=== PATIENT | male | born 1975 | race Caucasian/White ===

== ENCOUNTER 2020-01-26 16:04 | Emergency (ER) | payer SELFPAY ==
[2020-01-26] MEDS ORDERED: Sodium Chloride 0.9% 10 ML Syringe FLUSH PRN (16:08)
[2020-01-26] MEDS ORDERED: Iopamidol 612 MG/ML 100 ML Bottle IV SCH (16:15)
[2020-01-26] MEDS ORDERED: Sodium Chloride 0.9% 80 ML IV SCH (16:15)
--- NOTE | 2020-01-26 16:23 | EDM.PDOC ---
ED HPI GENERAL MEDICAL PROBLEM - General Chief Complaint: Trauma Stated Complaint: ACCIDENT [facility]IA [facility] Time Seen by Provider: 01/26/20 16:04 Source of Information: Reports: Patient, EMS History Limitations: Reports: No Limitations - History of Present Illness INITIAL COMMENTS - FREE TEXT/NARRATIVE: 44-year-old male was helping side of building and fell off a ladder 8 feet. He has been consuming alcohol. He struck the right side of his head hard on some concrete and was knocked unconscious. When he came around the next thing he remembers is the ambulance was present. He had repetitive questioning, was complaining about some right wrist and right femur pain but no other complaints initially. On arrival to the emergency room he started complaining about some right-sided chest wall pain. He has no shortness of breath, visual complaints, neck pain, abdominal pain, pelvis pain or nausea. Onset: Sudden Duration: Hour(s): (Just under 1 hour ago) Location: Reports: Head, Face, Chest, Upper Extremity, Right, Lower Extremity, Right Quality: Reports: Ache Associated Symptoms: Reports: Confusion, Chest Pain (Fairly localized chest pain in the right lateral chest), Malaise. Denies: Cough, Diaphoresis, Fever/Chills, Loss of Appetite, Nausea/Vomiting, Seizure, Shortness of Breath, Weakness - Related Data Allergies Allergy/AdvReac Type Severity Reaction Status Date / Time Cephalosporins Allergy Cannot Verified 01/26/20 16:15 Remember Penicillins Allergy Rash Verified 01/26/20 16:13 Home Meds: Home Meds Cetirizine [ZyrTEC] 10 mg PO DAILY 01/26/20 [History] Review of Systems - Review of Systems Review Of Systems: See Below Constitutional: Denies: Fever Eyes: Denies: Tunnel Vision, Vision Change Ears: Reports: No Symptoms Mouth/Throat: Denies: Bleeding, Difficulty Swallowing Respiratory: Reports: Pleuritic Chest Pain. Denies: Shortness of Breath GI/Abdominal: Reports: No Symptoms Skin: Reports: Other (Superficial abrasions on the right forehead and face, small abrasion on the right anterior leg) Neurological: Reports: Confusion, Other (Loss of consciousness up to 10 minutes). Denies: Headache, Paresthesia ED EXAM, GENERAL - Physical Exam Exam: See Below Free Text/Narrative:: Primary survey showed slight confusion but otherwise very stable male with a GCS of 15. Normal O2 saturations and respiratory rate, blood pressure normal. Exam Limited By: No Limitations General Appearance: Alert, No Apparent Distress Eye Exam: Bilateral Eye: Normal Inspection Head: Other (Patient has a superficial abrasions on the right upper forehead, right zygomatic area with tenderness to palpation but no crepitus or defect) Neck: Supple, Non-Tender Respiratory/Chest: No Respiratory Distress, Lungs Clear, Other (Fairly exquisite localized tenderness to palpation over the inferior aspect of the right lateral chest wall, no crepitus) Cardiovascular: Regular Rate, Rhythm GI/Abdominal: Soft, Non-Tender Back Exam: Normal Inspection Extremities: Other (Tender to palpation over the distal femur, able to hold the leg up against gravity, no effusion of the knee. He has a small abrasion just above the knee. Also has tenderness to palpation of the right wrist although there is no deformity. Increased pain to the wrist with grasping but he has full sensation and range of motion of the fingers.) Neurological: Alert, Oriented, Other (Patient is intoxicated) Psychiatric: Normal Affect, Normal Mood Course - Vital Signs Last Recorded V/S: Last Vital Signs Temp 98.8 F 01/26/20 16:06 Pulse 95 01/26/20 16:06 Resp 14 01/26/20 16:06 BP 129/80 01/26/20 16:06 Pulse Ox 95 01/26/20 16:06 - Orders/Labs/Meds Meds: Medications Discontinued Medications Generic Name Dose Route Start Last Admin Trade Name Freq PRN Reason Stop Dose Admin Sodium Chloride 80 mls @ 3 mls/sec 01/26/20 16:15 01/26/20 16:33 Normal Saline IV 3 mls/sec ASDIRECTED JAIME Administration Iopamidol 100 ml 01/26/20 16:15 01/26/20 16:33 Isovue-300 (61%) IV 100 ml . DIRECTED JAIME Administration Sodium Chloride 10 ml 01/26/20 16:08 01/26/20 16:24 Saline Flush FLUSH 10 ml ASDIRECTED PRN Administration Keep Vein Open - Re-Assessments/Exams Free Text/Narrative Re-Assessment/Exam: 01/26/20 16:23 CT of the head without contrast, CT the chest abdomen and pelvis with contrast was obtained as well as x-ray of the right wrist and right femur. IV was not necessary, patient was very stable. X-ray of the right wrist showed a comminuted but minimally displaced distal radius fracture. Right femur x-ray was negative. CT report showed an isolated 11th rib fracture but otherwise negative. A 24 inch sugar tong Ortho-Glass splint was applied to the arm immobilizing the wrist and he can recheck with Dr. Stuart next week. Increase activity as tolerated. Wear sling for comfort. Ibuprofen or naproxen will help with pain and he can return anytime if worsening or concerns. Departure - Departure Time of Disposition: 18:19 Disposition: Home, Self-Care 01 Clinical Impression: Fracture of right radius Qualifiers: Encounter type: initial encounter Radius location: distal Fracture type: closed Fracture morphology: unspecified fracture morphology Qualified Code(s): S52.501A - Unspecified fracture of the lower end of right radius, initial encounter for closed fracture Rib fracture Qualifiers: Encounter type: initial encounter Rib fracture type: single rib Concussion Qualifiers: Encounter type: initial encounter Loss of consciousness presence/duration: with LOC of 30 min or less Qualified Code(s): S06.0X1A - Concussion with loss of consciousness of 30 minutes or less, initial encounter Abrasion of face Qualifiers: Encounter type: initial encounter Qualified Code(s): S00.81XA - Abrasion of other part of head, initial encounter - Discharge Information Instructions: Concussion, Adult, [id number], Wrist Fracture Treated With Immobilization, [id number], Rib Fracture, [id number] Referrals: PCP,None [Primary Care Provider] - Forms: ED Department Discharge Care Plan Goals: Keep splint on your arm and wear sling until next Friday when you recheck with orthopedics. Call for an appointment time on Friday or Friday. Increase activity as tolerated. Naproxen will help with discomfort, ice sore areas for the next 2 days. Return if worsening such as difficulty breathing or uncontrolled pain.
--- NOTE | 2020-01-26 17:25 | CRLCT ---
INDICATION: trauma, fall CT HEAD WITHOUT CONTRAST TECHNIQUE: Multiple axial CT images were performed through the head without intravenous contrast administration. COMPARISON: No previous studies are currently available for comparison. FINDINGS: No acute intracranial hemorrhage is identified. No extra-axial collections are evident and there is no mass effect or midline shift. Ventricles are normal in size and configuration. Brain parenchyma appears normal with unremarkable patricia-white differentiation. Moderate right-sided scalp hematoma is noted laterally. Osseous structures are within normal limits and no fractures are seen. Included portions of the paranasal sinuses and mastoid air cells are normally aerated. IMPRESSION: 1. No intracranial abnormality identified. 2. Right-sided scalp hematoma. No fracture is seen. TOÑA CHASE MD [facility] [employer] Dictated by Ari Chase MD @ 01/26/2020 5:21:58 PM Dictated by: Ari Chase MD @ 01/26/2020 17:23:39 (Electronically Signed)
--- NOTE | 2020-01-26 17:42 | CRLCT ---
INDICATION: trauma, fall, chest pain CT CHEST, ABDOMEN, AND PELVIS WITH CONTRAST TECHNIQUE: Multidetector CT imaging was performed through the chest, abdomen, and pelvis following intravenous contrast administration using 100 mL Isovue 300. Coronal and sagittal reconstructions were generated. COMPARISON: None. FINDINGS: Lungs and airways: Mild dependent lung atelectasis bilaterally. No confluent infiltrates, suspicious nodules, or masses. Central airways are patent. Pleura and pleural spaces: No pleural effusions or pneumothorax. Heart and mediastinum: Normal heart size. No significant pericardial effusion. No pathologically enlarged mediastinal lymph nodes. Vascular structures: No filling defects in the pulmonary arterial tree to suggest pulmonary emboli. Normal caliber thoracic and abdominal aorta without evidence of dissection. Chest wall and axillae: No mass or axillary lymphadenopathy. Liver and spleen: Within normal limits. Gallbladder and bile ducts: No gallbladder wall thickening or calcified gallstones. No biliary dilation identified. Pancreas, adrenals, and retroperitoneum: No pancreatic or adrenal mass. No pathologically enlarged lymph nodes identified in the abdomen or pelvis. Kidneys, ureters, and urinary bladder: Cyst at the upper pole of the left kidney. Exophytic 11 millimeter hyperdense cyst versus solid nodule at the lower pole of the left kidney. No evidence of acute traumatic renal injury. No hydronephrosis. No bladder mass or definite wall thickening. Gastrointestinal tract and peritoneum: Normal caliber bowel without wall thickening. Normal appendix. No free air, abscess, or significant free fluid. Reproductive organs: Upper normal prostate size. Bones: Probable acute nondisplaced fracture of the posterolateral right 11th rib. No other acute fracture identified. Probable healing nondisplaced subacute fractures of the anterior left 8th and 9th ribs. IMPRESSION: 1. Probable acute nondisplaced fracture of the posterolateral right 11th rib. No other acute traumatic findings. 2. Exophytic 11 millimeter hyperdense cyst versus solid nodule at the lower pole of the left kidney. Follow-up renal ultrasound in 6 months with specific attention to this area is recommended. TOÑA CHASE MD [facility] Dictated by Ari Chase MD @ 01/26/2020 5:35:09 PM Dictated by: Ari Chase MD @ 01/26/2020 17:40:24 (Electronically Signed)
--- NOTE | 2020-01-27 09:18 | CR ---
Wrist Comp Min 3V Rt CLINICAL HISTORY: Fall FINDINGS: There is an impaction fracture of the distal radius. There is minimal palmar angulation. There is a fracture of the ulnar styloid. There is a bone island in the distal ulna. There is some overlap of the trapezoid on the AP image. Some carpal subluxation is not excluded Impression: Impaction fracture distal radius and fracture of the ulnar styloid. Asymmetry at the trapezoid articulations may represent subluxation. 4 view follow-up study recommended when patient's condition allows
--- NOTE | 2020-01-27 09:32 | CR ---
Femur Min 2V Rt CLINICAL HISTORY: Fall FINDINGS: There is no acute fracture within the femur. No destructive changes are seen. Impression: Negative
== END 2020-01-26 18:19 | disposition home or self-care (01) ==
LOC: JP.ED 16:04
DX: S52.601A Unspecified fracture of lower end of right ulna, initial encounter for closed fracture (principal); S52.501A Unspecified fracture of the lower end of right radius, initial encounter for closed fracture; S22.31XA Fracture of one rib, right side, initial encounter for closed fracture; S06.0X1A Concussion with loss of consciousness of 30 minutes or less, initial encounter; Z88.1 Allergy status to other antibiotic agents; Z88.0 Allergy status to penicillin; W11.XXXA Fall on and from ladder, initial encounter
CPT/HCPCS: 29125; 70450; 71260; 73110; 73552; 74177; 99285; J7050; Q9967